=== PATIENT | female | born 1965 | race Caucasian/White ===

== ENCOUNTER 2017-12-10 06:54 | Emergency (ER) | payer SELFPAY ==
[2017-12-10] MEDS ORDERED: NORMAL SALINE 1000 ML 1,000 ML IV ONE (07:23)
[2017-12-10 08:00] LABS: ABSOLUTE EOSINOPHILS # (AUTO) 0.3 10^3/uL (0.0-0.6); ABSOLUTE MONOCYTES (AUTO) 0.6 10^3/uL (0.1-1.4); ABSOLUTE NEUT (AUTO) 4.5 10^3/uL (1.7-8.2); BASOPHILS % (AUTO) 0.4 % (0-2); EOSINOPHILS % (AUTO) 3.1 % (0-6); LYMPHOCYTES % (AUTO) 42.5 % (13-45); MEAN CORPUSCULAR HEMOGLOBIN 32.6 pg (27.0-33.4); MEAN CORPUSCULAR VOLUME 96 fl (80-97); MONOCYTES % (AUTO) 6.1 % (3-13); PLATELET COUNT 277 10^3/uL (150-450); RED BLOOD COUNT 4.59 10^6/uL (3.72-5.28); RED CELL DISTRIBUTION WIDTH 13.3 % (11.5-14.0); SEGMENTED NEUTROPHILS % (AUTO) 47.9 % (42-78); TOTAL CELLS COUNTED % (AUTO) 100 %; WHITE BLOOD COUNT 9.4 10^3/uL (4.0-10.5)
[2017-12-10 08:10] LABS: ALANINE AMINOTRANSFERASE 23 U/L (9-52); ALBUMIN 4.5 g/dL (3.5-5.0); ALKALINE PHOSPHATASE 52 U/L (38-126); ANION GAP 12 (5-19); ASPARTATE AMINO TRANSFERASE 30 U/L (14-36); BILIRUBIN,DIRECT 0.4 mg/dL (0.0-0.4); BILIRUBIN,TOTAL 0.4 mg/dL (0.2-1.3); BLOOD UREA NITROGEN 8 mg/dL (7-20); CALCIUM 9.9 mg/dL (8.4-10.2); CARBON DIOXIDE 24 mmol/L (22-30); CHLORIDE 108 mmol/L (98-107); GLUCOSE 100 mg/dL (75-110); LIPASE 165.1 U/L (23-300); POTASSIUM 4.5 mmol/L (3.6-5.0); SODIUM 144.4 mmol/L (137-145); TOTAL PROTEIN 7.3 g/dL (6.3-8.2)
[2017-12-10 08:22] LABS: APPEARANCE,URINE CLEAR; BILIRUBIN,URINE NEGATIVE (NEGATIVE); COLOR,URINE STRAW; GLUCOSE, URINE NEGATIVE (NEGATIVE); KETONES,URINE NEGATIVE (NEGATIVE); LEUKOCYTE ESTERASE,URINE NEGATIVE (NEGATIVE); NITRITE,URINE NEGATIVE (NEGATIVE); PROTEIN,URINE NEGATIVE (NEGATIVE); URINE SPECIFIC GRAVITY 1.005; UROBILINOGEN,URINE NEGATIVE mg/dL (<2.0)
--- NOTE | 2017-12-10 09:19 | RADIOLOGY REPORT (SQ) ---
EXAM DESCRIPTION: U/S ABDOMEN LTD W/DOPPLER COMPLETED DATE/TIME: 12/10/2017 9:05 am REASON FOR STUDY: ruq pain right kidney pain COMPARISON: None. TECHNIQUE: Dynamic and static grayscale images acquired of the abdomen and recorded on PACS. Christiano nal selected color Doppler and spectral images recorded. LIMITATIONS: None. FINDINGS: PANCREAS: Midline pancreas is unremarkable LIVER: No masses. Echotexture normal. LIVER VASCULATURE: Normal directional flow of the main portal vein and hepatic veins. GALLBLADDER: No stones. Normal wall thickness. No pericholecystic fluid. ULTRASOUND-DETECTED PORTER'S SIGN: Negative. INTRAHEPATIC DUCTS AND COMMON DUCT: CBD and intrahepatic ducts normal caliber. No filling defects. INFERIOR VENA CAVA: Normal flow. AORTA: No aneurysm. RIGHT KIDNEY: Normal size. Normal echogenicity. No solid or suspicious masses. No hydronephrosis. No calcifications. PERITONEAL AND RIGHT PLEURAL SPACE: No ascites or effusions. OTHER: No other significant findings. IMPRESSION: NORMAL RIGHT UPPER QUADRANT ULTRASOUND. TECHNICAL DOCUMENTATION: JOB ID: [id number] [employer]- All Rights Reserved Reading location - IP/workstation name: [email or web address]
[2017-12-10 09:23] VITALS: BP 123/57
--- NOTE | 2017-12-10 10:42 | RADIOLOGY REPORT (SQ) ---
EXAM DESCRIPTION: ACUTE ABDOMEN SERIES COMPLETED DATE/TIME: 12/10/2017 10:26 am REASON FOR STUDY: cough abd pain COMPARISON: None. NUMBER OF VIEWS: Three views. TECHNIQUE: Frontal chest, supine abdomen and upright abdomen radiographic images acquired. LIMITATIONS: None. FINDINGS: CHEST: Lungs clear of infiltrates. FREE AIR: None. No abnormal gas collections. BOWEL GAS PATTERN: Nonobstructive pattern. No dilated loops or air fluid levels. CALCIFICATIONS: No suspicious calcifications. HARDWARE: None in the abdomen. SOFT TISSUES: No gross mass or suggestion of organomegaly. BONES: No acute fracture. No worrisome bone lesions. OTHER: No other significant finding. IMPRESSION: NO RADIOGRAPHIC EVIDENCE FOR ACUTE ABDOMINAL DISEASE. TECHNICAL DOCUMENTATION: JOB ID: [id number] [employer]- All Rights Reserved Reading location - IP/workstation name: [email or web address]
[2017-12-10] MEDS ORDERED: MAGNESIUM CITRATE 296 ML BOTTLE PO ONE (10:48)
--- NOTE | 2017-12-10 10:48 | ER Document Report ---
ED General - General Chief Complaint: Abdominal Pain Stated Complaint: ABDOMINAL PAIN Time Seen by Provider: 12/10/17 07:09 TRAVEL OUTSIDE OF THE [place] IN LAST 30 DAYS: No - HPI Patient complains to provider of: Right upper quadrant abdominal pain Notes: Patient coming in for evaluation of upper quadrant abdominal pain radiating to her back associated with nausea vomiting. Patient states worse few days prior to arrival by 3 spaghetti worse last night after eating chicken with all vital. Patient denies fever chills denies any diarrhea. Patient states has a history of complications with constipation. Patient states she has been drinking a lot of prune juice has had a bowel movement in the last 24 hours. Patient denies any abnormalities of the bowel movement. Patient otherwise is resting comfortably upon my evaluation. Denies any past surgical history - Related Data Allergies/Adverse Reactions: iodine [Iodine] Allergy (Severe, Verified 06/08/11 01:12) ciprofloxacin [From Cipro] Allergy (Unknown, Verified 06/08/11 02:51) ciprofloxacin HCl [From Cipro] Allergy (Unknown, Verified 06/08/11 02:51) aspirin [Aspirin] Allergy (Verified 06/08/11 01:12) Penicillins Allergy (Verified 06/08/11 01:12) Hives Past Medical History - Social History Smoking Status: Current Every Day Smoker Chew tobacco use (# tins/day): No Frequency of alcohol use: None Drug Abuse: None Family History: Reviewed & Not Pertinent Patient has suicidal ideation: No Patient has homicidal ideation: No Pulmonary Medical History: Reports: Hx Asthma, Hx Bronchitis, Hx Pneumonia Renal/ Medical History: Reports: Hx Kidney Stones. Denies: Hx Peritoneal Dialysis Past Surgical History: Reports: Hx Oral Surgery - wisdom teeth, Hx Tonsillectomy - Immunizations Hx Diphtheria, Pertussis, Tetanus Vaccination: Yes Review of Systems - Review of Systems Constitutional: No symptoms reported EENT: No symptoms reported Cardiovascular: No symptoms reported Respiratory: No symptoms reported Gastrointestinal: Abdominal pain, Nausea, Vomiting, Constipation Genitourinary: No symptoms reported Female Genitourinary: No symptoms reported Musculoskeletal: No symptoms reported Skin: No symptoms reported Hematologic/Lymphatic: No symptoms reported Neurological/Psychological: No symptoms reported -: Yes All other systems reviewed and negative Physical Exam - Vital signs Vitals: Temp Pulse Resp BP Pulse Ox 97.8 F 89 18 145/81 H 97 12/10/17 07:07 12/10/17 07:07 12/10/17 07:07 12/10/17 07:07 12/10/17 07:07 Interpretation: Normal - General General appearance: Appears well, Alert - HEENT Head: Normocephalic, Atraumatic Eyes: Normal Pupils: PERRL - Respiratory Respiratory status: No respiratory distress Chest status: Nontender Breath sounds: Normal Chest palpation: Normal - Cardiovascular Rhythm: Regular Heart sounds: Normal auscultation Murmur: No - Abdominal Inspection: Normal Distension: No distension Bowel sounds: Normal Tenderness: Tender - Minimal right upper quadrant tenderness. No: Ledbetter's sign , Guarding, Rebound, Other Organomegaly: No organomegaly - Back Back: Normal, Nontender - Extremities General upper extremity: Normal inspection, Nontender, Normal color, Normal ROM , Normal temperature General lower extremity: Normal inspection, Nontender, Normal color, Normal ROM , Normal temperature, Normal weight bearing. No: Eric's sign - Neurological Neuro grossly intact: Yes Cognition: Normal Orientation: AAOx4 [place] Coma Scale Eye Opening: Spontaneous [place] Coma Scale Verbal: Oriented [place]ise Coma Scale Motor: Obeys Commands Marquise Coma Scale Total: 15 Speech: Normal Motor strength normal: LUE, RUE, LLE, RLE Sensory: Normal - Psychological Associated symptoms: Normal affect, Normal mood - Skin Skin Temperature: Warm Skin Moisture: Dry Skin Color: Normal Course - Re-evaluation Re-evalutation: 12/10/17 11:17 Due to patient complaining of right upper quadrant tenderness rating to her back associated with worsening with food to get a ultrasound which otherwise is negative. Patient states that the ultrasound she is passing gas and so much better. A acute abdominal series was performed showing mild to moderate constipation. We will treat this with mag citrate. Patient was also educated about use Tylenol Motrin for pain control Bentyl for colonic spasms and Zofran for nausea. Patient will be discharged home - Vital Signs Vital signs: Temp Pulse Resp BP Pulse Ox 97.6 F 70 18 123/57 L 98 12/10/17 09:18 12/10/17 09:18 12/10/17 09:18 12/10/17 09:18 12/10/17 09:18 - Laboratory Result Diagrams: 12/10/17 07:20 12/10/17 07:20 Laboratory results interpreted by me: 12/10/17 12/10/17 07:20 07:20 Chloride 108 H Urine Blood MODERATE H Discharge - Discharge Clinical Impression: Abdominal pain Qualifiers: Abdominal location: right upper quadrant Qualified Code(s): R10.11 - Right upper quadrant pain Constipation Qualifiers: Constipation type: unspecified constipation type Qualified Code(s): K59.00 - Constipation, unspecified Condition: Good Disposition: HOME, SELF-CARE Instructions: Abdominal Pain ([facility]), Constipation ([facility]) Additional Instructions: X-ray today shows signs of constipation which may be causing some of the right upper quadrant pain that she has been having. Ultrasound laboratory studies not showing signs of significant infections not showing signs of gallbladder disease. Would recommend a bland diet for the next 1224 hrs. We are going to give you a bottle of mag citrate please drink the entire bottle this is a laxative and will aid with your constipation I would recommend taking Tylenol and Motrin 600 mg of of Motrin along with 1000 mg of Tylenol 3 times a day to aid in your pain He may take the Bentyl prescribed for abdominal cramps Zofran prescribed for nausea Prescriptions: Dicyclomine HCl [Bentyl 20 mg Tablet] 20 mg PO QID #20 tablet Ondansetron HCl [Zofran 4 mg Tablet] 1 - 2 tab PO Q6 #30 tablet Referrals: JESUS STEVENSON NP [Primary Care Provider] - Follow up in 3-5 days
== END 2017-12-10 11:15 | disposition home or self-care (01) ==
LOC: ER 06:54
DX: K59.00 Constipation, unspecified (principal); R10.11 Right upper quadrant pain; F17.200 Nicotine dependence, unspecified, uncomplicated; Z88.3 Allergy status to other anti-infective agents; Z88.6 Allergy status to analgesic agent; Z88.0 Allergy status to penicillin; Z87.442 Personal history of urinary calculi
CPT/HCPCS: 99284; 96360; 36415; 83690; 85025; 80053; 81001; 74022; 76705; 93976; J3490; J7030